=== PATIENT | male | born 1985 | race African-American/Black ===

== ENCOUNTER 2024-05-22 09:45 | Emergency (ER) | payer SELFPAY ==
[~2024-05-22] VITALS: Ht 188 cm; Wt 215.0 kg
[2024-05-22 09:48] VITALS: O2SAT 97
[2024-05-22] MEDS: KETOROLAC 15MG/ML VIAL IM ONE (10:30)
[2024-05-22] MEDS ORDERED: NAPR-1176 MT (11:24)
[2024-05-22] MEDS ORDERED: LIDO700A15 TP (11:24)
[2024-05-22 11:36] VITALS: BP 138/87; PULSE 80; RESP 16; TEMP 97.9
== END 2024-05-22 11:56 | disposition home or self-care (01) ==
LOC: ER 09:45
DX: R07.81 Pleurodynia (principal); M25.512 Pain in left shoulder; V49.59XA Passenger injured in collision with other motor vehicles in traffic accident, initial encounter; Y93.89 Activity, other specified; Y92.89 Other specified places as the place of occurrence of the external cause; Y99.8 Other external cause status
CPT/HCPCS: 99284; 71100; 73030; 96372; J1885